=== PATIENT | male | born 1935 | race Caucasian/White ===

== ENCOUNTER → 2016-12-31 | Outpatient (CLI) | payer MEDICARE, OTHER ==
[~2016-12-31] VITALS: Ht 190.5 cm; Wt 99.8 kg
[~2016-12-31] MED LIST: CATHETER FLUSH 10 ML SYR IV PRN; REGADENOSON 0.4 MG/5 ML SYR (LEXISCAN) IV ONE
[2016-12-31 12:58] VITALS: BP 171/109
--- NOTE | 2017-01-02 09:17 | STRESS TEST ---
DATE OF SERVICE: 12/31/2016 LEXISCAN MYOVIEW STRESS TEST REPORT Baseline heart rate is 70. Baseline blood pressure 168/108. Baseline EKG is sinus rhythm with no ischemic changes. In summary, the patient was injected with 10.36 mCi of technetium-99 Myoview and the resting images were obtained. Then, the patient received 0.4 mg of Lexiscan followed by 30.0 mCi of technetium-99 Myoview. Throughout the test, there were no acute ischemic EKG changes. The resting and stress images were reviewed and compared in the short axis, horizontal long axis, and vertical long axis views. Review of the images showed motion artifact with diaphragmatic attenuation, no significant ischemia or infarction were noted. SSS is 1, SDS 1, TID value 1.03. On the gated images, the left ventricle appeared to be prominent with mild diffuse left ventricular hypokinesia, calculated ejection fraction 45%. CONCLUSION: 1. The patient tolerated Lexiscan well. 2. Diaphragmatic attenuation with no significant ischemia or infarction on SPECT images. 3. Prominent left ventricle with mild diffuse left ventricular hypokinesia, calculated ejection fraction 45%. Job ID: [id number] DocumentID: [id number] Dictated Date: 01/01/2017 07:10:32 Roll Up Helper Date: 01/01/2017 07:35:22 Dictated By: YANDY JAMESON MD
== END ==
LOC: CARD 11:18
DX: I25.10 Atherosclerotic heart disease of native coronary artery without angina pectoris (principal); I11.9 Hypertensive heart disease without heart failure; I48.91 Unspecified atrial fibrillation
CPT/HCPCS: 78452; 93017

== ENCOUNTER → 2017-07-16 | Outpatient (CLI) | payer MEDICARE, OTHER ==
--- NOTE | 2017-07-16 12:17 | Diagnostic Imaging Report ---
INDICATION: Shortness of breath. TIME OF EXAM: 11:58 AM No prior studies are available for comparison. FINDINGS: The heart size is normal. Cardiac defibrillator is in place. There is elevation of right hemidiaphragm. Linear atelectasis in the right base is seen. No effusion or pneumothorax is identified. IMPRESSION: Right basilar subsegmental atelectasis. Dictated by: Dictated on workstation # [id number]
== END ==
LOC: RAD 11:23
PROVIDERS: ATTEND Internal Medicine Cardiovascular Disease
DX: J98.11 Atelectasis (principal)
CPT/HCPCS: 71046